=== PATIENT | female | born 1950 | race Caucasian/White ===

== ENCOUNTER 2018-04-01 05:26 | Inpatient (IN) | payer MEDICARE, OTHER ==
[2018-03-25 12:34] LABS: BASOPHILS % (AUTO) 0.6 % (0-1); EOSINOPHILS # (AUTO) 0.2 X10'3 (0-0.9); EOSINOPHILS % (AUTO) 3.6 % (0-6); LYMPHOCYTES # (AUTO) 2.3 X10'3 (1.1-4.8); LYMPHOCYTES % (AUTO) 36.6 % (21-51); MEAN CORPUSCULAR HEMOGLOBIN 33.3 PG (27.0-31.0); MEAN CORPUSCULAR VOLUME 97.8 FL (78-98); MEAN PLATELET VOLUME 9.6 FL (7.4-10.4); MONOCYTES # (AUTO) 0.7 X10'3 (0-0.9); MONOCYTES % (AUTO) 10.5 % (2-12); NEUTROPHILS # (AUTO) 3.1 X10'3 (1.8-7.7); NEUTROPHILS % (AUTO) 48.7 % (42-75); PRE OP HEMATOCRIT 36.4 % (35.0-45.0); PRE OP HEMOGLOBIN 12.4 g/dL (12.0-16.0); PRE OP PLATELET COUNT 251 X10'3 (140-440); RED BLOOD COUNT 3.73 X10'6 (4.20-5.60); RED CELL DISTRIBUTION WIDTH 13.7 % (11.5-14.5)
[2018-03-25 12:40] LABS: CLARITY,URINE SLIGHTLY CLOUDY (Clear); COLOR,URINE YELLOW (Yellow); GLUCOSE, URINE NEGATIVE (Neg); KETONES,URINE NEGATIVE (Neg); LEUKOCYTE ESTERASE ,URINE TRACE (Neg); NITRITES, URINE POSITIVE (Neg); OCCULT BLOOD,URINE NEGATIVE (Neg); PROTEIN,URINE NEGATIVE (Neg); UROBILINOGEN,URINE 0.2 E.U/dL (0.2-1.0)
[2018-03-25 12:47] LABS: UA COLLECTION TYPE CLN CATCH MIDSTREAM
[2018-03-25 12:50] LABS: SQUAMOUS EPITHELIAL CELL,UR MODERATE /LPF (FEW)
[2018-03-25 12:50] LABS: ALBUMIN 3.3 G/DL (3.4-5.0); ALKALINE PHOSPHATASE 52 IU/L (46-116); BLOOD UREA NITROGEN 25 MG/DL (7-18); BUN/CREATININE RATIO 35.2 (6.6-38.0); CALCIUM 9.4 MG/DL (8.5-10.1); CHLORIDE 105 MMOL/L (99-107); CREATININE 0.71 MG/DL (0.40-0.90); PRE OP ALT 17 U/L (30-65); PRE OP ANION GAP 11 (8-16); PRE OP AST 15 U/L (10-37); PRE OP BILIRUB, TOTAL 0.2 MG/DL (0.0-1.0); PRE OP GLUCOSE 82 MG/DL (70-104); PRE OP POTASSIUM 4.1 MMOL/L (3.4-5.1); PRE OP SODIUM 142 MMOL/L (135-145); TOTAL CARBON DIOXIDE 26.3 MMOL/L (24-32); TOTAL PROTEIN 6.6 G/DL (6.4-8.2); eGFR 82 ML/MIN
[2018-03-25 12:51] LABS: BACTERIA,URINE 3+ /HPF (Neg); RBC,URINE 0-2 /HPF (0-2)
[2018-03-25 13:21] LABS: PRE OP PROTIME 9.9 SECONDS (9.0-12.0)
[2018-04-01] VITALS (22 sets, daily range): BP systolic 85–138; BP diastolic 48–73
[~2018-04-01] VITALS: Ht 162.6 cm; Wt 49.9 kg
[~2018-04-01 05:26] MED LIST: ALPR2TAB97 PO; DOCU-261 PO; IBUP-75 PO; OXYC-658 PO; ringers solution, lacted 1,000 ML IV SCH
[2018-04-01] MEDS ORDERED: celeCOXIB 100mg capsule PO ONE ×2 (05:30)
[2018-04-01] MEDS ORDERED: acetaminophen 325mg tablet PO ONE (05:30)
[2018-04-01] MEDS ORDERED: tranexamic acid inj. 1,000 MG in normal saline 100ml IV soln 90 ML IV ONE (05:30)
[2018-04-01] MEDS ORDERED: VANCOMYCIN INJ 1000 MG in NORMAL SALINE 250ml IV.SOLN IV ONE (05:30)
[2018-04-01] MEDS ORDERED: gabapentin 300mg capsule PO ONE (05:30)
[2018-04-01] MEDS ORDERED: oxyCODONE SR 10mg (sust. release) tab -2 tabs (20mg) PO ONE (05:30)
[2018-04-01] MEDS ORDERED: metoclopramide 5 mg/ml inj IV ONE (05:30)
[2018-04-01] MEDS ORDERED: cefazolin/dext.iso 2gm/100 ML IV ONE (05:30)
[2018-04-01] MEDS ORDERED: famotidine 20mg tablet PO ONE (05:30)
[2018-04-01] MEDS ORDERED: LIDOcaine 1% (10mg/ml) 2ml vial ONE (06:17)
[2018-04-01] MEDS: potassium cl 20mEq in 1/2 NS 1,000 ML IV SCH ×4 (06:38→20:15)
[2018-04-01] MEDS ORDERED: magnesium hydroxide 30ml (MOM) UD suspension PO PRN (06:40)
[2018-04-01] MEDS ORDERED: diphenhydrAMINE 25mg capsule PO PRN ×2 (06:40)
[2018-04-01] MEDS ORDERED: HYDROmorphone 1 mg/ml syringe IV PRN ×2 (06:40)
[2018-04-01] MEDS ORDERED: bisacodyl 10mg suppository rectal RC PRN (06:40)
[2018-04-01] MEDS ORDERED: ondansetron/PF 4mg/2ml inj IV PRN ×3 (06:40→07:50)
[2018-04-01] MEDS ORDERED: acetaminophen 325mg tablet PO PRN (06:40)
[2018-04-01] MEDS ORDERED: vancomycin 1,000mg inj ONE (06:45)
[2018-04-01] MEDS ORDERED: tetracaine 1% (10mg/ml) pres. free inj. ONE (06:58)
[2018-04-01] MEDS ORDERED: BUPIVAcaine/dex-water/PF 7.5 mg/ml 2ml ampul ONE (06:58)
[2018-04-01] MEDS ORDERED: MIDAZolam 1mg/ml 10ml vial ONE (07:00)
[2018-04-01] MEDS ORDERED: morphine /PF 1mg/ml 10ml inj. ONE (07:01)
[2018-04-01] MEDS ORDERED: fentaNYL/PF 50MCG/1 ML 2ML syringe ONE (07:01)
[2018-04-01] MEDS ORDERED: ringers solution, lacted 1,000 ML IV SCH (07:07)
[2018-04-01] MEDS ORDERED: fentaNYL/PF 50MCG/1 ML 2ML syringe IV PRN ×2 (07:10)
[2018-04-01] MEDS ORDERED: morphine 4 MG/ML inj SYRINge IV PRN ×2 (07:10)
[2018-04-01] MEDS ORDERED: hydrALAZINE 20mg/ml inj. IV PRN (07:10)
[2018-04-01] MEDS ORDERED: labetalol 20mg/4ml (5mg/ml) syringe IV PRN (07:10)
[2018-04-01] MEDS ORDERED: [UNRECOGNIZED DRUG - OTHER] SQ ONE ×5 (07:15)
[2018-04-01] MEDS ORDERED: ROPIVACAINE SQ ONE ×5 (07:15)
[2018-04-01] MEDS ORDERED: EPINEPHRINE SQ ONE ×5 (07:15)
[2018-04-01] MEDS ORDERED: CLONIDINE SQ ONE ×5 (07:15)
[2018-04-01] MEDS ORDERED: ePHEDrine 50MG/ML INJ. ONE (07:34)
[2018-04-01] MEDS ORDERED: diphenhydrAMINE 50 mg/ml inj IV PRN (07:50)
[2018-04-01] MEDS ORDERED: vancomycin/NS 1 GM ADD-VANTAGE 250 ML IV SCH ×2 (08:00→20:00)
[2018-04-01] MEDS: ascorbic acid 500mg tablet PO SCH ×2 (08:00→20:07)
[2018-04-01] MEDS: multivitamins, therapeutics tablet PO SCH (08:00)
[2018-04-01] MEDS: ALPRAZolam 0.5mg tablet PO SCH ×3 (08:00→20:07)
[2018-04-01] MEDS: acetaminophen 325mg tablet PO SCH ×3 (08:00→20:08)
[2018-04-01] MEDS ORDERED: ceFAZolin 1GM/D5W- ADD-VANTAGE 50 ML IV SCH (08:00)
[2018-04-01] MEDS: gabapentin 300mg capsule PO SCH ×3 (08:00→20:07)
[2018-04-01] MEDS: aspirin 325mg tablet PO SCH (08:30)
[2018-04-01] MEDS: ceFAZolin 1GM/D5W- ADD-VANTAGE 50 ML IV SCH ×2 (15:56→23:52)
[2018-04-01] MEDS: sennosides 8.6mg tablet PO SCH (20:07)
[2018-04-02 02:00] VITALS: BP 112/65
[2018-04-02] MEDS: acetaminophen 325mg tablet PO SCH ×4 (03:32→20:47)
[2018-04-02] MEDS: oxyCODONE IR 5mg (immed. release) tablet PO PRN ×3 (03:32→15:47)
[2018-04-02 05:56] LABS: ANION GAP 6 (8-16); CHLORIDE 107 MMOL/L (99-107); POTASSIUM 3.8 MMOL/L (3.5-5.1); SODIUM 140 MMOL/L (135-145); TOTAL CARBON DIOXIDE 27.2 MMOL/L (24-32)
[2018-04-02 05:58] LABS: BASOPHILS % (AUTO) 0.3 % (0-1); EOSINOPHILS # (AUTO) 0.2 X10'3 (0-0.9); EOSINOPHILS % (AUTO) 2.4 % (0-6); HEMATOCRIT 29.5 % (35.0-45.0); HEMOGLOBIN 10.1 g/dl (12.0-16.0); LYMPHOCYTES % (AUTO) 13.8 % (21-51); MEAN CORPUSCULAR HEMOGLOBIN 33.3 PG (27.0-31.0); MEAN CORPUSCULAR HGB CONC 34.1 % (33.0-36.5); MEAN CORPUSCULAR VOLUME 97.5 FL (78-98); MEAN PLATELET VOLUME 9.7 FL (7.4-10.4); MONOCYTES % (AUTO) 14.2 % (2-12); NEUTROPHILS # (AUTO) 4.9 X10'3 (1.8-7.7); NEUTROPHILS % (AUTO) 69.3 % (42-75); PLATELET COUNT 180 X10'3 (140-440); RED BLOOD COUNT 3.02 X10'6 (4.20-5.60); RED CELL DISTRIBUTION WIDTH 13.1 % (11.5-14.5); WHITE BLOOD COUNT 7.1 X10'3 (4.5-11.0)
[2018-04-02 06:00] VITALS: BP 107/63
[2018-04-02] MEDS: gabapentin 300mg capsule PO SCH ×3 (07:13→20:46)
[2018-04-02] MEDS: multivitamins, therapeutics tablet PO SCH (07:15)
[2018-04-02] MEDS: ascorbic acid 500mg tablet PO SCH ×2 (07:15→20:46)
[2018-04-02] MEDS: ALPRAZolam 0.5mg tablet PO SCH ×3 (07:16→20:47)
[2018-04-02] MEDS: aspirin 325mg tablet PO SCH (07:16)
[2018-04-02] MEDS: potassium cl 20mEq in 1/2 NS 1,000 ML IV SCH (07:21)
[2018-04-02 14:00] VITALS: BP 124/70
[2018-04-02 18:00] VITALS: BP 92/52
[2018-04-02] MEDS: sennosides 8.6mg tablet PO SCH (20:47)
[2018-04-02 22:00] VITALS: BP 95/46
[2018-04-03] MEDS: oxyCODONE IR 5mg (immed. release) tablet PO PRN ×3 (01:03→12:34)
[2018-04-03] MEDS: acetaminophen 325mg tablet PO SCH (01:07)
[2018-04-03 05:49] LABS: BASOPHILS % (AUTO) 0.1 % (0-1); EOSINOPHILS # (AUTO) 0.2 X10'3 (0-0.9); EOSINOPHILS % (AUTO) 2.3 % (0-6); HEMATOCRIT 30.5 % (35.0-45.0); HEMOGLOBIN 10.1 g/dl (12.0-16.0); LYMPHOCYTES # (AUTO) 1.4 X10'3 (1.1-4.8); LYMPHOCYTES % (AUTO) 17.8 % (21-51); MEAN CORPUSCULAR HEMOGLOBIN 32.5 PG (27.0-31.0); MEAN CORPUSCULAR HGB CONC 33.2 % (33.0-36.5); MEAN PLATELET VOLUME 9.9 FL (7.4-10.4); MONOCYTES # (AUTO) 1.3 X10'3 (0-0.9); MONOCYTES % (AUTO) 16.5 % (2-12); NEUTROPHILS # (AUTO) 5.1 X10'3 (1.8-7.7); NEUTROPHILS % (AUTO) 63.3 % (42-75); PLATELET COUNT 176 X10'3 (140-440); RED BLOOD COUNT 3.11 X10'6 (4.20-5.60); RED CELL DISTRIBUTION WIDTH 13.2 % (11.5-14.5)
[2018-04-03 06:00] VITALS: BP 111/51
[2018-04-03] MEDS ORDERED: ASPI-1 PO (06:20)
[2018-04-03] MEDS: multivitamins, therapeutics tablet PO SCH (08:03)
[2018-04-03] MEDS: gabapentin 300mg capsule PO SCH ×2 (08:03→13:18)
[2018-04-03] MEDS: ascorbic acid 500mg tablet PO SCH (08:03)
[2018-04-03] MEDS: ALPRAZolam 0.5mg tablet PO SCH ×2 (08:03→13:19)
[2018-04-03] MEDS: aspirin 325mg tablet PO SCH (08:03)
[2018-04-03 10:00] VITALS: BP 125/59
== END 2018-04-03 14:05 | disposition home or self-care (01) | DRG 470 ==
LOC: PAS IN 05:26 → EDSTATUS 07:30 → ORTHO 4S 10:30
PROVIDERS: ADMIT Orthopaedic Surgery; ATTEND Orthopaedic Surgery
PROC: 0SR906Z Replacement of Right Hip Joint with Oxidized Zirconium on Polyethylene Synthetic Substitute, Open Approach (ICD-10-PCS; principal; 2018-04-01 07:09)
DX: M16.11 Unilateral primary osteoarthritis, right hip (principal); D62 Acute posthemorrhagic anemia; M87.051 Idiopathic aseptic necrosis of right femur; M54.31 Sciatica, right side; M54.5 Low back pain; F41.9 Anxiety disorder, unspecified; Z79.82 Long term (current) use of aspirin; Z79.899 Other long term (current) drug therapy
CPT/HCPCS: 36415; 71046; 72170; 80051; 80053; 81001; 85025; 85610; 85730; 86885; 86900; 86901; 87070; 87077; 87088; 87186; 97110; 97116; 97161; 97530; A4615; A7000; C1758; C1776; J0171; J0690; J0735; J1885; J2250; J2274; J2765; J2795; J3010; J3370; J3490; J7030; J7120